=== PATIENT | female | born 1985 | race Caucasian/White ===

== ENCOUNTER 2020-04-20 09:28 | Emergency (ER) | payer OTHER ==
[~2020-04-20] VITALS: Ht 157.5 cm; Wt 72.6 kg
[2020-04-20 09:36] VITALS: BP 115/77
--- NOTE | 2020-04-20 10:33 | NUR ---
COVID SPECIMEN OBTAINED AND SENT TO LAB.
--- NOTE | 2020-04-20 10:40 | NUR ---
Patient discharged to home in stable condition. Written and verbal after care instructions given. Patient verbalizes understanding of instruction.
== END 2020-04-20 10:41 | disposition home or self-care (01) ==
LOC: ER 09:32
DX: U07.1 COVID-19 (principal)
CPT/HCPCS: 99283; C9803; U0003